=== PATIENT | female | born 1980 | race Caucasian/White ===

== ENCOUNTER 2018-08-03 10:45 | Observation (INO) ==
--- NOTE | 2018-08-03 11:23 | Emergency Department Note ---
ED Disposition Clinical Impression: Dehydration, Cirrhosis of liver, Acute and chronic cholecystitis Disposition: Admitted as Observation Condition on Discharge: Fair Instructions: DI for Diarrhea and Traveler's Diarrhea -- Adult, DI for Diarrhea and Traveler's Diarrhea -- Child, DI for Nausea -- Adult, DI for Nausea -- Child Referrals: Steve Marcus MD [Primary Care Provider] - Time of Disposition: 18:00 - Critical Care Critical Care Time: No Attestation: On 08/03/18, the high probability of a clinically significant, sudden or life threatening deterioration of the following system(s) required my full and direct attention, intervention and personal management. The time I documented below is in addition to time spent performing reported procedures but includes the following listed in this critical care notation. Medical Decision Making - Medical Records Medical records reviewed: Yes: I reviewed the patient's medical records. - Bubba Inquiry Pt receiving controlled substance: No Vital Signs: 08/03/18 11:01 08/03/18 13:00 08/03/18 15:23 Temperature 98.6 F Temperature Source Oral Pulse Rate [Right Brachial] 89 91 H 90 Respiratory Rate 17 Blood Pressure [Right Arm] 110/72 124/84 124/75 Blood Pressure Mean [Right Arm] 84 97 91 Blood Pressure Source [Right Arm] Automatic Cuff Automatic Cuff Automatic Cuff Blood Pressure Position [Right Arm] Sitting Sitting Sitting 02 Sat by Pulse Oximetry 98 99 99 Oxygen Delivery Method Room Air 08/03/18 17:22 Temperature Temperature Source Pulse Rate [Right Brachial] 79 Respiratory Rate Blood Pressure [Right Arm] 125/66 Blood Pressure Mean [Right Arm] 85 Blood Pressure Source [Right Arm] Automatic Cuff Blood Pressure Position [Right Arm] Sitting 02 Sat by Pulse Oximetry 94 L Oxygen Delivery Method - Lab Data Lab results reviewed: Yes: I reviewed the patient's lab results. Lab Results 08/03/18 11:25: WBC 8.0, RBC 4.24, Hgb 11.6 L, Hct 37.0, MCV 87.2, MCH 27.3, MCHC 31.3 L, RDW 17.4, Plt Count 471 H, MPV 7.8, Neut % (Auto) 56.5, Lymph % (Auto) 37.1, [place] % (Auto) 4.8, Eos % (Auto) 0.5, Baso % (Auto) 1.2, Neut # (Auto) 4.5, Lymph # (Auto) 3.0, [place] # (Auto) 0.4, Eos # (Auto) 0.0, Baso # (Auto) 0.1 08/03/18 11:25: Sodium 137, Potassium 3.4 L, Chloride 104, Carbon Dioxide 25, Anion Gap 11.4, BUN 6 L, Creatinine 0.72, Estimated Creat Clear 118, Estimated GFR 92, Est GFR ( Amer) 111, Glucose 118 H, Calcium 8.0 L, Total Bilirubin 6.5 H, Direct Bilirubin 6.0 H, Indirect Bilirubin 0.5, AST 120 H, ALT 625 H*, Alkaline Phosphatase 259 H, Total Protein 6.6, Albumin 2.1 L, Globulin 4.5 H, Albumin/Globulin Ratio 0.5 L, Amylase 85, Lipase 267 08/03/18 11:25: PT 12.2 H, INR 1.19 H, APTT 36.7 H 08/03/18 11:25: Serum HCG, Qual Negative 08/03/18 12:49: POC Glucose 94 08/03/18 12:55: Urine Color [place]uni, Urine Appearance Sl cloudy, Urine pH 6.5, Ur Specific [place] 1.015, Urine Protein Negative, Urine Glucose (UA) Negative, Urine Ketones Negative, Urine Blood Negative, Urine Nitrate Negative, Urine Bilirubin 3+ A, Urine Urobilinogen 0.2, Ur Leukocyte Esterase Negative, Urine RBC None, Urine WBC 3-5, Ur Squamous Epith Cells 10-20, Urine Bacteria 1+ Result diagrams: 08/03/18 11:25 08/03/18 11:25 Orders (Tests/Meds): ED MEDICATIONS Discontinued Medications Generic Name Dose Route Start Last Admin Trade Name Freq PRN Reason Stop Dose Admin Sodium Chloride 1,000 mls @ 999 mls/hr 08/03/18 11:30 08/03/18 12:10 Sod Chlor 0.9% 1000ml Bag IV 08/03/18 12:30 999 mls/hr .Q1H1M AGUEDA Administration Lactated Ringer's 1,000 mls @ 999 mls/hr 08/03/18 15:30 08/03/18 15:24 Lactated Ringer's 1000 Ml Bag IV 08/03/18 16:30 999 mls/hr .Q1H1M AGUEDA Administration Ondansetron HCl 4 mg 08/03/18 11:17 08/03/18 12:10 Zofran 4mg/2ml Vial IV 08/03/18 11:18 4 mg ONCE ONE Administration ORDERS Category Date Time Status Hepatitis Panel (4) Stat Lab 08/03/18 17:58 Ordered Urinalysis and Microscopic Stat Lab 08/03/18 12:55 Ordered - Reevaluation(s) Time: 15:05 Reevaluation #1: Patient improved CT recommends a follow-up ultrasound Medical Decision Narrative: Differential diagnosis sepsis, hepatitis C hepatitis, malignancy, renal colic, cholecystitis FINDINGS: There are mild atelectatic changes in the right lung base with trace right-sided effusion. The liver, spleen, adrenal glands, and pancreas have an unremarkable unenhanced appearance. No renal or ureteral calculi. No hydronephrosis. Fluid density occupies the gallbladder fossa with a focal area of rim-like density within the central aspect of the gallbladder fossa. This may represent a contracted gallbladder with a moderate amount of pericholecystic fluid versus severe gallbladder wall thickening. Suggest ultrasound for further evaluation. An unusual shaped stone within a distended gallbladder is also a consideration. There is moderate retained colonic feces. No evidence of appendicitis or diverticulitis. There is a moderate amount fluid in the pelvis. No intestinal obstruction or free air. Nondistended fluid-filled loops of small bowel are noted. No acute bony anomalies. Degenerative disc disease is present at L4-L5. IMPRESSION: 1. Fluid density within the gallbladder fossa with a oval area of ringlike density centrally. This may be due to a contracted gallbladder with a moderate amount of pericholecystic fluid versus severe gallbladder wall thickening versus a distended gallbladder with a stone centrally. Suggest ultrasound for more thorough evaluation. 2. Moderate amount of nonspecific fluid in the pelvis. 3. Constipation 4. Trace right effusion with right basilar atelectasis Dictated By: Royce Carranza MD Signed By: <Electronically signed by Royce Carranza MD in [place]> 08/03/18 1355 DD/ 1345 FINDINGS: PANCREAS: Unremarkable. No obvious mass or abnormal fluid collection. No ductal dilatation LIVER: No focal liver lesions demonstrated. Homogeneous echogenicity. No intrahepatic biliary ductal dilatation evident RIGHT KIDNEY: Unremarkable. Normal size and echogenicity. No hydronephrosis GALLBLADDER: There is marked thickening of the gallbladder wall. This accounts for the abnormality noted on the CT scan. Gallbladder wall measures up to 18 mm in thickness. The common hepatic duct is normal at 5 mm. No gallstones are apparent. The spleen is enlarged at 16 cm IMPRESSION: 1. Markedly thickened gallbladder wall. No obvious stones. Gallbladder wall thickening is nonspecific and can be seen with acute or chronic cholecystitis, cirrhosis, hepatitis, among other etiologies. 2. Splenomegaly Dictated By: Royce Carranza MD Signed By: <Electronically signed by Royce Carranza MD in [place]> 08/03/18 1651 DD/ 1625 General Adult HPI - General Chief complaint: Nausea/Vomiting/Diarrhea Stated complaint: jaundice Time Seen by Provider: 08/03/18 11:10 Mode of Arrival: Ambulatory Limitations: No Limitations Description of Symptoms (Recalled from ER Triage Doc. by RN): patient sent from 's office for a hepatitis a work up after having had n/v for last two weeks along with fever. she has already a dx of hep c and usually doesn't have trouble from it - History of Present Illness HPI narrative: 38-year-old female with hepatitis C since 2012 last used IV drugs 3 weeks ago history of multiple incarcerations has no PMD has not been treated for the hepatitis for last 2 weeks patient states she is progressively getting jaundiced and feeling weaker with nausea no vomiting some nonspecific denies abdominal pain. Radiation: back Severity: moderate Quality: aching - Related Data Previous Rx's Medication Instructions Recorded cephALEXin [Keflex 500mg Cap] 500 mg PO TID #30 cap 05/26/18 fluconazole 100 mg tablet 100 mg PO DAILY 2 Days #2 tab 07/28/18 levofloxacin 500 mg tablet 500 mg PO DAILY 10 Days #10 tab 07/28/18 Allergies Allergy/AdvReac Type Severity Reaction Status Date / Time No Known Allergies Allergy Verified 08/03/18 09:46 [facility] History - Hepatitis A Screen Drug use history?: No High risk sexual behaviors?: No History of sexually transmitted infection?: No Currently employed?: No Childcare worker?: No Do you have indoor plumbing?: Yes Do you have electricity?: Yes Attestation statement:: This patient has been screened for Hepatitis A risk factors. I have reviewed the patient's past medical history: Yes Medical History: Reports:: Anxiety, Asthma, Hepatitis, MRSA Denies:: Cancer, Diabetes Mellitus Type 1, Diabetes Mellitus Type 2 Comment: HEP C + Other Surgeries: Yes: No Previous Surgery, Other (leap surgery and reconstructive surgery on face) Amputation: No Fractures: No - Social History Smoking Status: Current every day smoker Tobacco Type: cigarettes Alcohol Intake: never Substance Use Type: IV drugs, methamphetamine, former substance user - Psychiatric History Pschychiatric History:: Reports:: Anxiety Family Hx:: Cancer, Hypertension, Heart Attack, Stroke ROS Obtained: Yes All systems reviewed & no additional complaints - Gastrointestinal Gastrointestingal: Reports: as per HPI, abdominal pain, vomiting Physical Exam Patient grossly jaundiced alert and oriented but moving slowly appears weak somewhat dehydrated - General General appearance: alert (Weak and jaundiced), in distress Comment: She is jaundiced - Head Head exam: atraumatic, normocephalic, normal inspection - Eye Eye exam: Present: normal appearance, PERRL, EOMI - ENT ENT exam: Present: normal exam, normal oropharynx, mucous membranes moist, TM's normal bilaterally, normal external ear exam - Neck Neck exam: Present: normal inspection, full ROM, trachea midline. Absent: meningismus, lymphadenopathy - Chest Chest inspection: Present: normal inspection, symmetric chest wall rise. Absent: tenderness - Respiratory Respiratory exam: Present: normal lung sounds bilaterally. Absent: respiratory distress - Cardiovascular Cardiovascular exam: Present: regular rate, normal rhythm. Absent: JVD - Abdominal Exam Abdominal exam: Present: soft, tenderness (Generalized soreness no guarding no rebound), normal bowel sounds. Absent: distention, guarding Abdominal tenderness: Present: diffuse - Extremities Exam Extremities exam: Present: normal inspection, full ROM, normal capillary refill. Absent: calf tenderness - Back Exam Back exam: Present: normal inspection. Absent: tenderness - Neurological Exam Neurological exam: Present: alert, oriented X3 - Psychiatric Psychiatric exam: Present: normal affect, normal mood - Skin Skin exam: Present: warm, dry, intact, normal color - Lymphatic Lymphatic Findings: no adenopathy
[2018-08-03 11:43] LABS: Basophils # 0.1 K/mm3 (0-0.2); Basophils % 1.2 % (0.1-2.0); Eosinophils % 0.5 % (0.1-12.0); Hemoglobin 11.6 g/dL (12.2-16.2); Lymphocytes % 37.1 % (10-50); Mean Corpuscular HGB Conc 31.3 g/dL (31.8-35.4); Mean Corpuscular Hemoglobin 27.3 pg (27.0-31.2); Mean Corpuscular Volume 87.2 fl (81-99); Mean Platelet Volume 7.8 fl (7.4-10.4); Monocytes # 0.4 K/mm3 (0.1-1.0); Monocytes % 4.8 % (1.7-9.3); Neutrophils # 4.5 K/mm3 (1.8-7.8); Neutrophils % 56.5 % (37.0-80.0); Platelet Count 471 K/mm3 (142-424); Red Blood Count 4.24 M/mm3 (4.20-5.40); Red Cell Distribution Width 17.4 % (11.5-17.5)
[2018-08-03 11:52] LABS: INR 1.19 (0.9-1.1); Prothrombin Time 12.2 seconds (9.4-11.8)
[2018-08-03 11:53] LABS: Albumin Level 2.1 gm/dL (3.4-5.0); Albumin/Globulin Ratio 0.5 (1.1-1.8); Anion Gap 11.4 mEq/L (5-15); Globulin 4.5 gm/dl (1.3-3.2); Potassium 3.4 mmoL/L (3.5-5.1); Total Protein,Serum 6.6 gm/dL (6.4-8.2)
[2018-08-03 11:55] LABS: Activated Partial Thrombo Time 36.7 seconds (23.6-34.0)
[2018-08-03 12:07] LABS: Bilirubin,Total 6.5 mg/dL (0.2-1.0)
[2018-08-03 12:19] LABS: Bilirubin,Indirect 0.5 mg/dL (0.0-0.9)
[2018-08-03 13:02] LABS: Microscopic, Urine URINE MICROSCOPIC (MICROSCOPIC)
[2018-08-03 13:24] LABS: Appearance,Urine SL CLOUDY (Clear); Blood, Urine Negative (Negative); Color,Urine AMBER (Yellow); Glucose,Urine (UA) Negative (Negative); Ketones,Urine Negative (Negative); Leukocyte Esterase,Urine Negative (Negative); PH,Urine 6.5 (5.0-8.5); Protein,Urine Negative (Negative); Specific Gravity, Urine 1.015 (1.005-1.030); Urobilinogen,Urine 0.2 EU/dl (0.2)
[2018-08-03 13:27] LABS: Bilirubin,Urine 3+ (Negative)
[2018-08-03 13:36] LABS: Bacteria,Urine 1+ /lpf
[2018-08-04 06:11] LABS: Basophils # 0.1 K/mm3 (0-0.2); Eosinophils # 0.1 K/mm3 (0.0-0.4); Monocytes # 0.3 K/mm3 (0.1-1.0); White Blood Count 5.9 K/mm3 (4.8-10.8)
[2018-08-04 06:21] LABS: Basophils % 1.1 % (0.1-2.0); Hematocrit 33.2 % (37.0-47.0); Lymphocytes # 2.4 K/mm3 (0.7-4.5); Lymphocytes % 40.8 % (10-50); Mean Corpuscular HGB Conc 31.5 g/dL (31.8-35.4); Mean Corpuscular Hemoglobin 27.6 pg (27.0-31.2); Mean Corpuscular Volume 87.7 fl (81-99); Mean Platelet Volume 7.5 fl (7.4-10.4); Monocytes % 4.8 % (1.7-9.3); Neutrophils # 3.1 K/mm3 (1.8-7.8); Neutrophils % 52.3 % (37.0-80.0); Platelet Count 429 K/mm3 (142-424); Red Blood Count 3.78 M/mm3 (4.20-5.40); Red Cell Distribution Width 17.8 % (11.5-17.5)
[2018-08-04 06:24] LABS: Anion Gap 10.9 mEq/L (5-15); Potassium 3.9 mmoL/L (3.5-5.1)
[2018-08-04 06:27] LABS: Hemoglobin 10.4 g/dL (12.2-16.2)
--- NOTE | 2018-08-04 06:39 | Consult Report ---
*Admission Date: 08/03/18 *Chief complaint: Nausea and jaundice *History of present illness: This is a 38-year-old female seen in consultation from Dr. Marcus after presenting with nausea and jaundice. Evaluation included radiographic evidence of gallbladder wall thickening consistent with either cholecystitis or hepatitis. She has a documented history of hepatitis C. Please see forwarded copy of HPI from emergency department evaluation below: 38-year-old female with hepatitis C since 2012 last used IV drugs 3 weeks ago history of multiple incarcerations has no PMD has not been treated for the hepat itis for last 2 weeks patient states she is progressively getting jaundiced and feeling weaker with nausea no vomiting some nonspecific denies abdominal pain. Review of Systems - Constitutional Denies fever(s) - Eyes Denies change in vision - ENT Denies change in voice - *Cardiovascular Denies chest pain - *Respiratory Denies cough - *Gastrointestinal Reports nausea - Hematologic/Lymphatic Denies easy bleeding [facility] History Medical History: Reports:: Anxiety, Asthma, Hepatitis, MRSA Denies:: Cancer, Diabetes Mellitus Type 1, Diabetes Mellitus Type 2 Other Surgeries: Yes: No Previous Surgery, Tubal LigationComment Only: Other (leap surgery and reconstructive surgery on face) Amputation: No Fractures: No - *Social History Educational Level: Attended College Smoking Status: Current every day smoker Tobacco Type: cigarettes # Packs/Day (cigarettes): 1 Alcohol Intake: never Substance Use Type: IV drugs, methamphetamine Last Used Substance: days (ago) Occupational Status: unemployed Housing: house Household Members: family - Psychiatric History Expresses thoughts of harming self/others: None Suicide Plan Description: No Plan Pschychiatric History:: Reports:: Anxiety *Family Hx:: Cancer, Hypertension, Heart Attack, Stroke Meds Home Medications Medication Instructions Recorded Confirmed Type cephALEXin [Keflex 500mg Cap] 500 mg PO TID #30 cap 05/26/18 08/03/18 Rx fluconazole 100 mg tablet 100 mg PO DAILY 2 Days #2 tab 07/28/18 08/03/18 Rx levofloxacin 500 mg tablet 500 mg PO DAILY 10 Days #10 tab 07/28/18 08/03/18 Rx Allergies Allergy/AdvReac Type Severity Reaction Status Date / Time No Known Allergies Allergy Verified 08/03/18 09:46 Exam Vital signs and Labs for Last 24 Hours: Temp Pulse Resp BP Pulse Ox 98.1 F 80 18 115/70 98 08/04/18 04:00 08/04/18 04:00 08/04/18 04:00 08/04/18 04:00 08/04/18 04:00 Laboratory Results - last 24 hr 08/03/18 11:25: WBC 8.0, RBC 4.24, Hgb 11.6 L, Hct 37.0, MCV 87.2, MCH 27.3, MCHC 31.3 L, RDW 17.4, Plt Count 471 H, MPV 7.8, Neut % (Auto) 56.5, Lymph % (Auto) 37.1, [place] % (Auto) 4.8, Eos % (Auto) 0.5, Baso % (Auto) 1.2, Neut # (Auto) 4.5, Lymph # (Auto) 3.0, [place] # (Auto) 0.4, Eos # (Auto) 0.0, Baso # (Auto) 0.1 08/03/18 11:25: Sodium 137, Potassium 3.4 L, Chloride 104, Carbon Dioxide 25, Anion Gap 11.4, BUN 6 L, Creatinine 0.72, Estimated Creat Clear 118, Estimated GFR 92, Est GFR ( Amer) 111, Glucose 118 H, Calcium 8.0 L, Total Bilirubin 6.5 H, Direct Bilirubin 6.0 H, Indirect Bilirubin 0.5, AST 120 H, ALT 625 H*, Alkaline Phosphatase 259 H, Total Protein 6.6, Albumin 2.1 L, Globulin 4.5 H, Albumin/Globulin Ratio 0.5 L, Amylase 85, Lipase 267 08/03/18 11:25: PT 12.2 H, INR 1.19 H, APTT 36.7 H 08/03/18 11:25: Serum HCG, Qual Negative 08/03/18 12:49: POC Glucose 94 08/03/18 12:55: Urine Color [place], Urine Appearance Sl cloudy, Urine pH 6.5, Ur Specific [place] 1.015, Urine Protein Negative, Urine Glucose (UA) Negative, Urine Ketones Negative, Urine Blood Negative, Urine Nitrate Negative, Urine Bilirubin 3+ A, Urine Urobilinogen 0.2, Ur Leukocyte Esterase Negative, Urine RBC None, Urine WBC 3-5, Ur Squamous Epith Cells 10-20, Urine Bacteria 1+ 08/04/18 05:46: WBC 5.9 D, RBC 3.78 L, Hgb 10.4 L D, Hct 33.2 L, MCV 87.7, MCH 27.6, MCHC 31.5 L, RDW 17.8 H, Plt Count 429 H, MPV 7.5, Neut % (Auto) 52.3, Lymph % (Auto) 40.8, [place] % (Auto) 4.8, Eos % (Auto) 1.0, Baso % (Auto) 1.1, Neut # (Auto) 3.1, Lymph # (Auto) 2.4, [place] # (Auto) 0.3, Eos # (Auto) 0.1, Baso # (Auto) 0.1 08/04/18 05:46: Sodium 136, Potassium 3.9, Chloride 106, Carbon Dioxide 23, Anion Gap 10.9, BUN 5 L, Creatinine 0.74, Estimated Creat Clear 113, Estimated GFR 89, Est GFR ( Amer) 107, Magnesium 1.6 I & O for Last 24 hours: Intake & Output 08/01/18 08/02/18 08/03/18 08/04/18 11:59 11:59 11:59 11:59 Intake Total 1310 / 1310 Balance 1310 / 1310 Weight 152 lb 150 lb 7 oz - Constitutional no acute distress - *Routine Respiratory Exam Absent: respiratory distress - *Routine Cardiovascular Exam Present: RRR - *Routine Abdominal Exam Present: soft, tenderness. Absent: rebound, guarding Comments: mostly epigastric and RUQ Results - Labs 08/04/18 05:46 08/04/18 05:46 Laboratory Results - last 24 hr 08/03/18 11:25: WBC 8.0, RBC 4.24, Hgb 11.6 L, Hct 37.0, MCV 87.2, MCH 27.3, MCHC 31.3 L, RDW 17.4, Plt Count 471 H, MPV 7.8, Neut % (Auto) 56.5, Lymph % (Auto) 37.1, [place] % (Auto) 4.8, Eos % (Auto) 0.5, Baso % (Auto) 1.2, Neut # (Auto) 4.5, Lymph # (Auto) 3.0, [place] # (Auto) 0.4, Eos # (Auto) 0.0, Baso # (Auto) 0.1 08/03/18 11:25: Sodium 137, Potassium 3.4 L, Chloride 104, Carbon Dioxide 25, Anion Gap 11.4, BUN 6 L, Creatinine 0.72, Estimated Creat Clear 118, Estimated GFR 92, Est GFR ( Amer) 111, Glucose 118 H, Calcium 8.0 L, Total Bilirubin 6.5 H, Direct Bilirubin 6.0 H, Indirect Bilirubin 0.5, AST 120 H, ALT 625 H*, Alkaline Phosphatase 259 H, Total Protein 6.6, Albumin 2.1 L, Globulin 4.5 H, Albumin/Globulin Ratio 0.5 L, Amylase 85, Lipase 267 08/03/18 11:25: PT 12.2 H, INR 1.19 H, APTT 36.7 H 08/03/18 11:25: Serum HCG, Qual Negative 08/03/18 12:49: POC Glucose 94 08/03/18 12:55: Urine Color [place], Urine Appearance Sl cloudy, Urine pH 6.5, Ur Specific [place] 1.015, Urine Protein Negative, Urine Glucose (UA) Negative, Urine Ketones Negative, Urine Blood Negative, Urine Nitrate Negative, Urine Bilirubin 3+ A, Urine Urobilinogen 0.2, Ur Leukocyte Esterase Negative, Urine RBC None, Urine WBC 3-5, Ur Squamous Epith Cells 10-20, Urine Bacteria 1+ 08/04/18 05:46: WBC 5.9 D, RBC 3.78 L, Hgb 10.4 L D, Hct 33.2 L, MCV 87.7, MCH 27.6, MCHC 31.5 L, RDW 17.8 H, Plt Count 429 H, MPV 7.5, Neut % (Auto) 52.3, Lymph % (Auto) 40.8, [place] % (Auto) 4.8, Eos % (Auto) 1.0, Baso % (Auto) 1.1, Neut # (Auto) 3.1, Lymph # (Auto) 2.4, [place] # (Auto) 0.3, Eos # (Auto) 0.1, Baso # (Auto) 0.1 08/04/18 05:46: Sodium 136, Potassium 3.9, Chloride 106, Carbon Dioxide 23, Anion Gap 10.9, BUN 5 L, Creatinine 0.74, Estimated Creat Clear 113, Estimated GFR 89, Est GFR ( Amer) 107, Magnesium 1.6 Assessment and Plan (1) Hepatitis Current visit: Yes Status: Acute Category: Medical Code(s): K75.9 - Inflammatory liver disease, unspecified Although the possibility of cholecystitis exists, the radiographic changes of the patient's gallbladder are more likely secondary to hepatitis. She does not have an elevated white blood cell count and shows no sign of active infection. There is no definitive evidence of gallstones or secondary evidence of biliary duct obstruction. Serial abdominal exams Medical treatment of hepatitis Consideration of gastroenterology evaluation if concerns for obstruction increase (2) Jaundice Current visit: Yes Status: Acute Category: Medical Code(s): R17 - Unspecified jaundice Hyperbilirubinemia most likely secondary to hepatitis and less likely due to ductal obstruction.
[2018-08-04 06:53] LABS: Calcium 8.1 mg/dL (8.5-10.1)
--- NOTE | 2018-08-04 07:31 | Pharmacy Consult Notes ---
[facility] Pharmacy VTE Monitoring - Patient Demographics Admission date: 08/03/18 Report Date: 08/04/18 Time: 07:30 Allergies/Adverse Reactions: Patient Allergies No Known Allergies Allergy (Verified 08/03/18 09:46) Height: 1.68 m Weight: 68.237 kg Patient Problems: Current Active Problems Dehydration (Acute) Cirrhosis of liver (Acute) Acute and chronic cholecystitis (Acute) Hepatitis (Acute) Jaundice (Acute) - VTE Risk Labs: VTE Related Lab Results Hgb 10.4 g/dL (12.2-16.2) L D 08/04/18 05:46 Hct 33.2 % (37.0-47.0) L 08/04/18 05:46 Plt Count 429 K/mm3 (142-424) H 08/04/18 05:46 PT 12.2 seconds (9.4-11.8) H 08/03/18 11:25 INR 1.19 (0.9-1.1) H 08/03/18 11:25 APTT 36.7 seconds (23.6-34.0) H 08/03/18 11:25 BUN 5 mg/dL (7-18) L 08/04/18 05:46 Creatinine 0.74 mg/dL (0.55-1.02) 08/04/18 05:46 Estimated Creat Clear 113 mL/min (50-200) 08/04/18 05:46 Was VTE Risk Assessment Performed: Yes VTE Score: 0 VTE Risk Level: Very Low Risk - Prophylaxis VTE Prophylaxis Ordered?: Yes Types of VTE Prophylaxis: TEDS Knee High Location of Applied Device: Bilateral Lower Extremeties - VTE Diagnosis Confirmed Treatment or plan recommended: Continue Current Treatment
[2018-08-04 09:31] LABS: INR 1.17 (0.9-1.1)
[2018-08-04 09:34] LABS: Albumin Level 1.8 gm/dL (3.4-5.0); C-Reactive Protein 3.3 mg/L (0.0-0.9); Total Protein,Serum 5.9 gm/dL (6.4-8.2)
[2018-08-04 09:51] LABS: Bilirubin,Direct 2.8 mg/dL (0.0-0.2); Bilirubin,Indirect 0.4 mg/dL (0.0-0.9); Bilirubin,Total 3.2 mg/dL (0.2-1.0)
--- NOTE | 2018-08-04 13:52 | H&P/Discharge Summary ---
General - General Admission date:: 08/03/18 Discharge date: 08/04/18 *Admission Date: 08/03/18 *Chief complaint: jandiedwin *History of present illness: 38-year-old female seen in office yesterday with c/o of nausea and jaundice x 1 week. Evaluation included radiographic evidence of gallbladder wall thickening consistent with either cholecystitis or hepatitis. She has a documented history of hepatitis C sice 2012, last used IV drugs 3 weeks ago history of multiple incarcerations has no PMD has not been treated for the hepatitis. Was seen in in 2012 for hepatitis. Pt states for last 2 weeks patient states she is progressively getting jaundiced and feeling weaker with nausea no vomiting some nonspecific denies abdominal pain. [facility] History I have reviewed the patient's past medical history: Yes Medical History: Reports:: Anxiety, Asthma, Hepatitis, MRSA Denies:: Cancer, Diabetes Mellitus Type 1, Diabetes Mellitus Type 2 Other Surgeries: Yes: No Previous Surgery, Tubal LigationComment Only: Other (leap surgery and reconstructive surgery on face) Amputation: No Fractures: No - *Social History Educational Level: Attended College Smoking Status: Current every day smoker Tobacco Type: cigarettes # Packs/Day (cigarettes): 1 Alcohol Intake: never Substance Use Type: IV drugs, methamphetamine Last Used Substance: days (ago) Occupational Status: unemployed Housing: house Household Members: family - Psychiatric History Expresses thoughts of harming self/others: None Suicide Plan Description: No Plan Pschychiatric History:: Reports:: Anxiety *Family Hx:: Cancer, Hypertension, Heart Attack, Stroke Review of Systems - Review of Systems Review of systems:: pertinent systems reviewed and negative unless documented below - Constitutional Denies chills - Eyes Denies change in vision - ENT Denies change in voice - *Cardiovascular Denies rapid, pounding, or irregular heartbeat - *Respiratory Denies shortness of breath with activity - *Gastrointestinal Reports bloating, Reports nausea, Reports vomiting, Denies feeling full early - *Genitourinary Denies abnormal periods - *Musculoskeletal Denies decreased muscle mass - Integumentary/Breasts Denies rash - *Neurologic Denies restless legs - Psychiatric Denies anxiety - Endocrine Denies heat intolerance - Hematologic/Lymphatic Denies enlarged lymph nodes - Allergic/Immunologic Denies lip swelling Exam Vital signs and Labs for Last 24 Hours: Temp Pulse Resp BP Pulse Ox 99.7 F H 72 16 116/68 95 08/04/18 08:00 08/04/18 08:00 08/04/18 08:00 08/04/18 08:00 08/04/18 08:00 Laboratory Results - last 24 hr 08/04/18 05:46: WBC 5.9 D, RBC 3.78 L, Hgb 10.4 L D, Hct 33.2 L, MCV 87.7, MCH 27.6, MCHC 31.5 L, RDW 17.8 H, Plt Count 429 H, MPV 7.5, Neut % (Auto) 52.3, Lymph % (Auto) 40.8, [place] % (Auto) 4.8, Eos % (Auto) 1.0, Baso % (Auto) 1.1, Neut # (Auto) 3.1, Lymph # (Auto) 2.4, [place] # (Auto) 0.3, Eos # (Auto) 0.1, Baso # (Auto) 0.1 08/04/18 05:46: Sodium 136, Potassium 3.9, Chloride 106, Carbon Dioxide 23, Anion Gap 10.9, BUN 5 L, Creatinine 0.74, Estimated Creat Clear 113, Estimated GFR 89, Est GFR ( Amer) 107, Glucose 87 D, Calcium 8.1 L, Magnesium 1.6 08/04/18 05:46: ESR 73 H 08/04/18 09:14: PT 12.0 H, INR 1.17 H 08/04/18 09:14: Total Bilirubin 3.2 H, Direct Bilirubin 2.8 H, Indirect Bilirubin 0.4, AST 93 H, ALT 438 H*, Alkaline Phosphatase 247 H, C-Reactive Protein 3.3 H, Total Protein 5.9 L, Albumin 1.8 L D I & O for Last 24 hours: Intake & Output 08/02/18 08/03/18 08/04/18 08/05/18 11:59 11:59 11:59 11:59 Intake Total 1909 Balance 1909 Weight 152 lb 150 lb 7 oz - Constitutional no acute distress, chronically ill appearing - *Routine HEENT Exam Head: Present: normocephalic Eye: Present: PERRL ENT: Present: mucous membranes moist - *Routine Neck Exam Present: supple. Absent: lymphadenopathy - *Routine Respiratory Exam Present: CTA bilaterally - *Routine Cardiovascular Exam Present: RRR, murmur - *Routine Abdominal Exam Present: soft, normoactive bowel sounds, tenderness - *Routine Extremities Exam Present: full ROM. Absent: cyanosis, clubbing, edema - *Routine Skin Exam Present: warm, jaundice. Absent: rash - *Routine Neurological Exam Present: alert, oriented X3 - Routine Psychiatric Exam Present: normal affect Hospital Course Hospital Course: gallbladder:IMPRESSION: 1. Markedly thickened gallbladder wall. No obvious stones. Gallbladder wall thickening is nonspecific and can be seen with acute or chronic cholecystitis, cirrhosis, hepatitis, among other etiologies. 2. Splenomegaly ct IMPRESSION: 1. Fluid density within the gallbladder fossa with a oval area of ringlike density centrally. This may be due to a contracted gallbladder with a moderate amount of pericholecystic fluid versus severe gallbladder wall thickening versus a distended gallbladder with a stone centrally. Suggest ultrasound for more thorough evaluation. 2. Moderate amount of nonspecific fluid in the pelvis. 3. Constipation 4. Trace right effusion with right basilar atelectasis chest x ray:IMPRESSION: Trace right effusion with mild right basilar atelectasis or infiltrate echo- result pending pt states she is feeling bettter and eating and drinking well. Results Labs on day of discharge: Labs from last 24 hours 08/04/18 08/04/18 08/04/18 09:14 09:14 05:46 WBC RBC Hgb Hct MCV MCH MCHC RDW Plt Count MPV Neut % (Auto) Lymph % (Auto) [place] % (Auto) Eos % (Auto) Baso % (Auto) Neut # (Auto) Lymph # (Auto) [place] # (Auto) Eos # (Auto) Baso # (Auto) ESR 73 H PT 12.0 H INR 1.17 H Sodium Potassium Chloride Carbon Dioxide Anion Gap BUN Creatinine Estimated Creat Clear Estimated GFR Est GFR ( Amer) Glucose Calcium Magnesium Total Bilirubin 3.2 H Direct Bilirubin 2.8 H Indirect Bilirubin 0.4 AST 93 H ALT 438 H* Alkaline Phosphatase 247 H C-Reactive Protein 3.3 H Total Protein 5.9 L Albumin 1.8 L D 08/04/18 08/04/18 05:46 05:46 WBC 5.9 D RBC 3.78 L Hgb 10.4 L D Hct 33.2 L MCV 87.7 MCH 27.6 MCHC 31.5 L RDW 17.8 H Plt Count 429 H MPV 7.5 Neut % (Auto) 52.3 Lymph % (Auto) 40.8 [place] % (Auto) 4.8 Eos % (Auto) 1.0 Baso % (Auto) 1.1 Neut # (Auto) 3.1 Lymph # (Auto) 2.4 [place] # (Auto) 0.3 Eos # (Auto) 0.1 Baso # (Auto) 0.1 ESR PT INR Sodium 136 Potassium 3.9 Chloride 106 Carbon Dioxide 23 Anion Gap 10.9 BUN 5 L Creatinine 0.74 Estimated Creat Clear 113 Estimated GFR 89 Est GFR ( Amer) 107 Glucose 87 D Calcium 8.1 L Magnesium 1.6 Total Bilirubin Direct Bilirubin Indirect Bilirubin AST ALT Alkaline Phosphatase C-Reactive Protein Total Protein Albumin - Additional Comments Rounded with Dr. Marcus all orders per Angeline DS: Diagnosis - Discharge Diagnosis (1) Hepatitis Status: Acute (2) Jaundice Status: Acute Discharge Medications - Medications for Discharge Home Medication List at Discharge: No Action levofloxacin 500 mg tablet 500 mg PO DAILY 10 Days #10 tab Disposition Disposition: Home, Self-Care
[2018-08-05 07:13] LABS: Hepatitis B Core Antibody IgM Negative (Negative); Hepatitis B Surface Antigen Negative (Negative)
[2018-08-05 14:02] LABS: Hepatitis C Antibody >11.0 s/co ratio (0.0-0.9)
== END 2018-08-04 14:15 | disposition home or self-care (01) ==
LOC: ER 10:45 → 2ND 10:45
PROVIDERS: ADMIT Emergency Medicine; ATTEND Emergency Medicine

== ENCOUNTER → 2018-09-25 08:03 | Outpatient (CLI) | payer MEDICAID, SELFPAY ==
--- NOTE | 2018-09-25 | AS_ITS ---
Renal Arterial Duplex Indications: Abdominal bruit, Hep C IMPRESSIONS Normal bilateral renal artery evaluation. Complete renal arterial duplex. Duplex scan and Doppler flow study including spectral analysis, color and lerma scale imaging. Location: Vascular laboratory. Patient status: Outpatient. Tables: Arterial flow: + +--------+--------+---------+ Location V sys V ed Resistive + +--------+--------+---------+ Right renal - proximal 141cm/s 54.7cm/s --------- + +--------+--------+---------+ Right renal - mid 112cm/s 44.7cm/s --------- + +--------+--------+---------+ Right renal - distal 96.1cm/s 43.7cm/s --------- + +--------+--------+---------+ Left renal - proximal 103cm/s 36.2cm/s --------- + +--------+--------+---------+ Left renal - mid 166cm/s 67.8cm/s --------- + +--------+--------+---------+ Left renal - distal 152cm/s 57.7cm/s --------- + +--------+--------+---------+ Right renal-origin 138cm/s 48.1cm/s 0.65 + +--------+--------+---------+ Left renal-origin 95.7cm/s 30.9cm/s 0.68 + +--------+--------+---------+ Renal anatomy: + +------+------+ Left Right + +------+------+ Long axis 12.7cm 12.3cm + +------+------+ Short axis 6.2cm 6.1cm + +------+------+ Cortical thickness 1.5cm 1.6cm + +------+------+ Velocity ratios: + +-----+ V sys + +-----+ Right renal/aortic 1.3 + +-----+ Left renal/aortic 1.5 + +-----+ (Report amended ) Electronically signed by: Royce Carranza [id number]
--- NOTE | 2018-09-25 08:17 | US_ITS ---
US abdomen complete HISTORY: 8 ITS.REASON: POSITIVE HEPATITIS C,ABD BRUIT ORDERING PHYSICIAN: Conchita Herrmann PATIENT AGE: 38 years COMPARISON: None FINDINGS: PANCREAS:Unremarkable. No obvious mass or abnormal fluid collection. No ductal dilatation LIVER:No focal liver lesions demonstrated. Homogeneous echogenicity. No intrahepatic biliary ductal dilatation evident. There is appropriate direction of blood flow within the portal vein which is not enlarged RIGHT KIDNEY:Unremarkable. Normal size and echogenicity. No hydronephrosis LEFT KIDNEY:Unremarkable. No hydronephrosis. Normal size and echogenicity. GALLBLADDER:No gallstones, gallbladder wall thickening, pericholecystic fluid, or biliary dilatation. There is a small amount sludge in the gallbladder. There may be a small polyp anteriorly. No shadowing stones AORTA:No evidence of aneurysmal dilatation. SPLEEN:Unremarkable. Normal size and echogenicity. The spleen is upper normal in size at 13 cm ASCITES:None demonstrated. IMPRESSION: Minimal amount sludge in the gallbladder with possible wall polyp otherwise negative abdominal ultrasound
== END ==
PROVIDERS: PCP Emergency Medicine; Visit Provider Nurse Practitioner
DX: R76.8 Other specified abnormal immunological findings in serum (principal)
CPT/HCPCS: 76700; 93976

== ENCOUNTER 2020-02-12 19:55 | Emergency (ER) | payer MEDICAID, SELFPAY ==
[2020-02-12 19:56] VITALS: BP 152/72; PULSE 127; RESP 16; TEMP 37.2; O2SAT 100; BMI 24.2
[2020-02-12 20:14] VITALS: BP 94/66; PULSE 121; RESP 18; O2SAT 98
--- NOTE | 2020-02-12 20:15 | PC.NURSE ---
pt to restroom via wheelchair for urine sample
[2020-02-12 20:18] LABS: Microscopic, Urine URINE MICROSCOPIC (MICROSCOPIC)
[2020-02-12 20:21] LABS: Bilirubin,Urine Negative (Negative); Blood, Urine Negative (Negative); Color,Urine YELLOW (Yellow); Glucose,Urine (UA) Negative (Negative); Ketones,Urine Negative (Negative); Leukocyte Esterase,Urine 2+ (Negative); Nitrate,Urine POSITIVE (Negative); Protein,Urine Negative (Negative)
[2020-02-12 20:30] LABS: Appearance,Urine Slightly Cloudy (Clear)
--- NOTE | 2020-02-12 20:30 | XR_ITS ---
PROCEDURE: XR FOOT LT MIN 3V CLINICAL INDICATION: abcess on top of LT foot Pain redness and swelling COMPARISON: No exams were available for comparison FINDINGS: No fracture or dislocation. No lytic or blastic change. There is normal mineralization. The joint spaces are well-preserved. No significant degenerative/arthritic changes. No erosive changes evident. Other findings:Soft tissue swelling is present along the dorsal aspect of the foot at the metatarsal region and also at the dorsal aspect of the proximal foot. No radiopaque foreign body or soft tissue gas. IMPRESSION: Soft tissue swelling otherwise negative Dictated by: Royce Carranza MD 02/13/2020 07:56 Electronically signed by Royce Carranza MD in [place] 02/13/2020 07:56
[2020-02-12 20:34] LABS: Amphetamine/Metha Screen,Urine Positive ng/ml (<1000); Benzodiazepines Screen,Urine Negative ng/ml (<200)
[2020-02-12 20:35] LABS: Barbiturates Screen,Urine Negative ng/ml (<200); Cannabinoid Screen,Urine Negative ng/ml (<50)
[2020-02-12 20:36] LABS: Cocaine Screen,Urine Negative ng/ml (<300)
[2020-02-12 20:37] LABS: Methadone Screen,Urine Negative ng/ml (<300); Opiate Screen,Urine Negative ng/ml (<300)
[2020-02-12 20:38] LABS: Phencyclidine Screen,Urine Negative ng/ml (<25)
--- NOTE | 2020-02-12 20:39 | HMH.EDSKAF ---
ED Disposition Clinical Impression: SIRS (systemic inflammatory response syndrome), Elevated erythrocyte sedimentation rate, Elevated C-reactive protein, Amphetamine user, COVID-19 virus IgG antibody detected Cellulitis Qualifiers: Site of cellulitis: extremity Site of cellulitis of extremity: lower extremity Laterality: left Qualified Code(s): L03.116 - Cellulitis of left lower limb Disposition: Home, Self-Care Condition on Discharge: Fair Instructions: DI for Skin Abscess Additional Instructions: see dr flowers at 0800 Referrals: Provider,Referral, [Primary Care Provider] - - Critical Care Critical Care Time: No Attestation: On 02/12/20, the high probability of a clinically significant, sudden or life threatening deterioration of the following system(s) required my full and direct attention, intervention and personal management. The time I documented below is in addition to time spent performing reported procedures but includes the following listed in this critical care notation. Medical Decision Making - Medical Records Medical records reviewed: Yes: I reviewed the patient's medical records. - Bubba Inquiry Pt receiving controlled substance: No Vital Signs: 02/12/20 19:56 02/12/20 20:14 02/12/20 21:50 Temperature 99.0 F Temperature Source Oral Pulse Rate [Left Radial] 127 H 121 H 100 H Respiratory Rate 16 18 18 Blood Pressure [Right Arm] 152/72 H 94/66 L 120/80 Blood Pressure Mean [Right Arm] 98 75 93 Blood Pressure Source [Right Arm] Automatic Cuff Blood Pressure Position [Right Arm] Sitting 02 Sat by Pulse Oximetry 100 98 100 Oxygen Delivery Method Room Air Room Air Room Air 02/12/20 22:37 Temperature Temperature Source Pulse Rate [Left Radial] 112 H Respiratory Rate 18 Blood Pressure [Right Arm] 127/78 Blood Pressure Mean [Right Arm] 94 Blood Pressure Source [Right Arm] Blood Pressure Position [Right Arm] 02 Sat by Pulse Oximetry 100 Oxygen Delivery Method Room Air - Lab Data Lab results reviewed: Yes: I reviewed the patient's lab results. Lab Results 02/12/20 20:13: Urine Color Yellow, Urine Appearance Slightly cloudy, Urine pH 7.0, Ur Specific [place] 1.010, Urine Protein Negative, Urine Glucose (UA) Negative, Urine Ketones Negative, Urine Blood Negative, Urine Nitrate Positive, Urine Bilirubin Negative, Urine Urobilinogen 1.0, Ur Leukocyte Esterase 2+ A, Urine WBC 3-5, Ur Squamous Epith Cells Occasional, Urine Bacteria 2+ 02/12/20 20:13: Urine HCG, Qual Negative 02/12/20 20:13: Urine Opiates Screen Negative, Urine Methadone Screen Negative, Ur Barbituates Screen Negative, Ur Phencyclidine Scrn Negative, Ur Amphetamines Screen Positive H, U Benzodiazepines Scrn Negative, Urine Cocaine Screen Negative, U Marijuana (THC) Screen Negative 02/12/20 21:41: ESR 79 H 02/12/20 21:41: WBC 15.7 H, RBC 4.18 L, Hgb 12.5, Hct 35.6 L, MCV 85.1, MCH 30.0, MCHC 35.2, RDW 13.5, Plt Count 324, MPV 7.2 L, Neut % (Auto) 77.0, Lymph % (Auto) 17.7, [place] % (Auto) 4.6, Eos % (Auto) 0.4, Baso % (Auto) 0.2, Neut # (Auto) 12.1 H, Lymph # (Auto) 2.8, [place] # (Auto) 0.7, Eos # (Auto) 0.1, Baso # (Auto) 0.0 02/12/20 21:41: Sodium 132 L, Potassium 3.9, Chloride 102, Carbon Dioxide 24, Anion Gap 9.9, BUN 7, Creatinine 0.60, Estimated Creat Clear 138, Estimated GFR 112, Est GFR ( Amer) 136, Glucose 111 H, Calcium 9.1, Total Bilirubin 1.0, AST 62 H, ALT 63, Alkaline Phosphatase 92, C-Reactive Protein 104.1 H, Total Protein 7.9, Albumin 3.8, Globulin 4.1 H, Albumin/Globulin Ratio 0.9 L 02/12/20 21:41: SARS-CoV-2 IgG Ab (Rapid) Positive A, SARS-CoV-2 IgM Ab (Rapid) Negative Result diagrams: 02/12/20 21:41 02/12/20 21:41 Orders (Tests/Meds): ED MEDICATIONS Discontinued Medications Generic Name Dose Route Start Last Admin Trade Name Freq PRN Reason Stop Dose Admin Acetaminophen/Codeine Phosphate 1 rodrick 02/12/20 22:42 02/12/20 22:43 Acetaminophen W/Codeine #3 Take Home Pack (6) PO 02/12/20
[2020-02-12 20:44] LABS: Urine Pregnancy, HCG Qual. Negative (Negative)
--- NOTE | 2020-02-12 20:45 | PC.NURSE ---
at bedside. Femoral stick performed by . site prepped with chlor. prep pressure held by MD for 5 minutes. pt tolerated well
--- NOTE | 2020-02-12 20:50 | PC.NURSE ---
Paulette RN speaking to royce in pharmacy for vanc dosing
--- NOTE | 2020-02-12 20:50 | PC.NURSE ---
this nurse attempted IV access with no success due to Scar tissue from IV drug use reported by pt. Santos at bedside attempting now
--- NOTE | 2020-02-12 21:18 | PC.NURSE ---
multiple IV attempts per ed staff. supervisor vat house contacted to attempt IV stick
--- NOTE | 2020-02-12 21:18 | PC.NURSE ---
talking to dr flowers (podiatry)
[2020-02-12 21:31] LABS: Bacteria,Urine 2+ /lpf; Squamous Epithelial Cell,Urine Occasional #/hpf (0-5)
--- NOTE | 2020-02-12 21:42 | PC.NURSE ---
Tom unable to get IV access. spoke with Dr. Bartlett who will see pt in the morning at 8am.
--- NOTE | 2020-02-12 21:43 | PC.NURSE ---
at bedside for Femoral stick to retrieve blood.
--- NOTE | 2020-02-12 21:43 | PC.NURSE ---
pt refuses admission and stated she will follow up with Dr. Bartlett in the morning
[2020-02-12 21:50] VITALS: BP 120/80; PULSE 100; RESP 18; O2SAT 100
[2020-02-12 21:51] LABS: Basophils % 0.2 % (0.1-2.0); Eosinophils # 0.1 K/mm3 (0.0-0.4); Eosinophils % 0.4 % (0.1-12.0); Hematocrit 35.6 % (37.0-47.0); Hemoglobin 12.5 g/dL (12.2-16.2); Lymphocytes # 2.8 K/mm3 (0.7-4.5); Lymphocytes % 17.7 % (10-50); Mean Corpuscular HGB Conc 35.2 g/dL (31.8-35.4); Mean Corpuscular Volume 85.1 fl (81-99); Mean Platelet Volume 7.2 fl (7.4-10.4); Monocytes # 0.7 K/mm3 (0.1-1.0); Monocytes % 4.6 % (1.7-9.3); Neutrophils # 12.1 K/mm3 (1.8-7.8); Platelet Count 324 K/mm3 (142-424); Red Blood Count 4.18 M/mm3 (4.20-5.40); Red Cell Distribution Width 13.5 % (11.5-17.5); White Blood Count 15.7 K/mm3 (4.8-10.8)
[2020-02-12 21:55] LABS: Chloride 102 mmol/L (98-107); Potassium 3.9 mmoL/L (3.5-5.1); Sodium 132 mmol/L (136-145)
[2020-02-12 21:58] LABS: Alanine Aminotransferase 63 U/L (12-78); Albumin Level 3.8 g/dl (3.5-5.0); Albumin/Globulin Ratio 0.9 (1.1-1.8); Alkaline Phosphatase 92 U/L (38-126); Anion Gap 9.9 mEq/L (5-15); Aspartate Amino Transferase 62 U/L (14-36); Blood Urea Nitrogen 7 mg/dl (7-17); Calcium 9.1 mg/dl (8.4-10.2); Carbon Dioxide 24 mmol/L (22.0-30.0); Creatinine Clearance Estimated 138 mL/min (50-200); Estimated Glomerular Filt Rate 112 ml/min (>60); GFR (African American) 136 ML/MIN (>60); Globulin 4.1 g/dL (1.3-3.2); Glucose 111 mg/dl (74-100); Total Protein,Serum 7.9 g/dl (6.3-8.2)
[2020-02-12 22:00] LABS: MANUAL DIFFERENTIAL MANUAL DIFFERENTIAL (MANUAL DIFF)
[2020-02-12 22:03] LABS: C-Reactive Protein 104.1 mg/L (0-4)
[2020-02-12 22:17] LABS: Coronavirus 19 IgG Antibody Positive (Negative); Coronavirus 19 IgM Antibody Negative (Negative)
--- NOTE | 2020-02-12 22:18 | PC.NURSE ---
notified of positive covid IgG
[2020-02-12 22:30] LABS: Erythrocyte Sedimentation Rate 79 mm/hr (0-20)
[2020-02-12 22:37] VITALS: BP 127/78; PULSE 112; RESP 18; O2SAT 100
--- NOTE | 2020-02-12 22:50 | PC.NURSE ---
pt refused to be admitted. pt educated on the importance of showing up to her appointment with Dr. Bartlett at 8am tomorrow morning. pt educated on infection/sepsis and the dangers of not getting treatment
[2020-02-12 22:59] LABS: Lymphocytes % 21 % (10-50); Monocytes % 4 % (2-9); Neutrophils % 75 % (42-76); Platelet Estimate Normal; RBC Morphology Normal; Total Cells Counted 100
[2020-02-12 23:00] VITALS: BP 122/72; PULSE 110; RESP 16; TEMP 37.2; O2SAT 98
== END 2020-02-12 23:04 | disposition home or self-care (01) ==
PROVIDERS: Emergency Provider Emergency Medicine
DX: L03.116 Cellulitis of left lower limb (principal); R65.10 Systemic inflammatory response syndrome (SIRS) of non-infectious origin without acute organ dysfunction; R70.0 Elevated erythrocyte sedimentation rate; F15.10 Other stimulant abuse, uncomplicated; Z01.84 Encounter for antibody response examination; F41.9 Anxiety disorder, unspecified; F17.210 Nicotine dependence, cigarettes, uncomplicated; J45.909 Unspecified asthma, uncomplicated
CPT/HCPCS: 73630; 80053; 80305; 81001; 81025; 85007; 85025; 85651; 86140; 86328; 87040; 87070; 87077; 87086; 87088; 87186; 87205; 96372; 99283; 99284

== ENCOUNTER 2020-09-02 03:12 | Emergency (ER) | payer MEDICAID, SELFPAY ==
[2020-09-02 03:13] VITALS: BP 150/91; PULSE 103; RESP 16; TEMP 36.4; O2SAT 100; BMI 22.6
--- NOTE | 2020-09-02 03:54 | PC.NURSE ---
Unable to gain IV access after multiple attempts by staff.
--- NOTE | 2020-09-02 04:02 | HMH.EDSKAF ---
ED Disposition Clinical Impression: Cellulitis of axilla, right Disposition: Home, Self-Care Condition on Discharge: Fair Instructions: DI for Skin Abscess Additional Instructions: warm compresses and use meds and see pcp for follow up or surg Prescriptions: Sulfamethoxazole/Trimethoprim [Bactrim DS tablet] 1 each PO BID #14 tab Transmission Status: P[facility] to [id number] Mupirocin [Bactroban 2% Ointment 22gm tube] 1 applicatio TP BID #1 tube Transmission Status: Pending to [id number] Minocycline HCl [Minocycline HCl 100mg Tab*] 100 mg PO BID #20 tab Transmission Status: [id number] Referrals: PCP,No [Primary Care Provider] - - Critical Care Critical Care Time: No Attestation: On 09/02/20, the high probability of a clinically significant, sudden or life threatening deterioration of the following system(s) required my full and direct attention, intervention and personal management. The time I documented below is in addition to time spent performing reported procedures but includes the following listed in this critical care notation. Medical Decision Making - Medical Records Medical records reviewed: Yes: I reviewed the patient's medical records. - Bubba Inquiry Pt receiving controlled substance: No Vital Signs: 09/02/20 03:13 Temperature 97.5 F L Temperature Source Oral Pulse Rate [Left] 103 H Respiratory Rate 16 Blood Pressure [Left Arm] 150/91 H Blood Pressure Mean [Left Arm] 110 02 Sat by Pulse Oximetry 100 Oxygen Delivery Method Room Air Skin/Abscess/FB HPI - General Chief complaint: Skin/Abscess/Foreign Body Stated complaint: boil under r arm Time Seen by Provider: 09/02/20 03:35 Mode of Arrival: Ambulatory Source of Information: Patient, Significant Other, Medical Record Limitations: No Limitations Description of Symptoms (Recalled from ER Triage Doc. by RN): pt reports boil under rt arm, redness, pain no drainage noted x week - History of Present Illness HPI narrative: over the last week has rt axilla drainage and tenderness complaint: abscess/boil Onset (ago): day(s) Tetanus up to date: unsure Location: RUE Severity: moderate Associated symptoms: denies other symptoms Treatments prior to arrival: none - Related Data Previous Rx's Medication Instructions Recorded Minocycline HCl [Minocycline HCl 100 mg PO BID #20 tab 09/02/20 100mg Tab*] Mupirocin [Bactroban 2% Ointment 1 applicatio TP BID #1 tube 09/02/20 22gm tube] Sulfamethoxazole/Trimethoprim 1 each PO BID #14 tab 09/02/20 [Bactrim DS tablet] Allergies Allergy/AdvReac Type Severity Reaction Status Date / Time No Known Allergies Allergy Verified 09/02/20 03:29 [facility] History - Hepatitis A Screen Drug use history?: Yes High risk sexual behaviors?: No History of sexually transmitted infection?: No Currently employed?: No Childcare worker?: No Do you have indoor plumbing?: Yes Do you have electricity?: Yes Attestation statement:: This patient has been screened for Hepatitis A risk factors. I have reviewed the patient's past medical history: Yes Medical History: Reports:: Anxiety, Asthma, Hepatitis, MRSA Denies:: Cancer, Diabetes Mellitus Type 1, Diabetes Mellitus Type 2 Comment: HEP C + Other Surgeries: Yes: No Previous Surgery, Tubal LigationComment Only: Other (leap surgery and reconstructive surgery on face) Amputation: No Fractures: No - Social History Smoking Status: Current every day smoker Tobacco Type: cigarettes # Packs/Day (cigarettes): 1 Alcohol Intake: never Substance Use Type: methamphetamine Last Used Substance: unknown Occupational Status: unemployed Housing: house Household Members: family - Psychiatric History Pschychiatric History:: Reports:: Anxiety Family Hx:: Cancer, Hypertension, Heart Attack, Stroke ROS Obtained: Yes All systems reviewed & no additional complaints - Constitutional Constitutional: Denies fever
[2020-09-02 04:13] VITALS: BP 149/89; PULSE 99; RESP 16; TEMP 36.4; O2SAT 99
== END 2020-09-02 04:18 | disposition home or self-care (01) ==
PROVIDERS: Emergency Provider Emergency Medicine
DX: L03.111 Cellulitis of right axilla (principal); F41.9 Anxiety disorder, unspecified; J45.909 Unspecified asthma, uncomplicated; F17.210 Nicotine dependence, cigarettes, uncomplicated; Z79.899 Other long term (current) drug therapy
CPT/HCPCS: 99281

== ENCOUNTER 2021-01-14 10:07 | Emergency (ER) | payer MEDICAID, SELFPAY ==
[2021-01-14 10:14] VITALS: BP 138/91; PULSE 82; RESP 18; TEMP 36.8; O2SAT 98; BMI 25.8
--- NOTE | 2021-01-14 10:25 | HMH.EDUTC ---
[facility] [place] Clinical Impression: Otitis media Qualifiers: Otitis media type: unspecified Laterality: left Qualified Code(s): H66.92 - Otitis media, unspecified, left ear Sinusitis Qualifiers: Sinusitis location: unspecified location Chronicity: unspecified Qualified Code(s): J32.9 - Chronic sinusitis, unspecified Disposition: Home, Self-Care Condition on Discharge: Good Instructions: Sinusitis, DI for Sinusitis, Middle Ear Infection, Amoxicillin and Clavulanic Acid, Methylprednisolone Additional Instructions: *Monitor Temp, Over the counter Motrin or Tylenol as directed/as needed Tylenol every 4 hours and Motrin every 6 hours (as long as your family doctor has told you that you can take it) for fever or pain. and straight to ER if unable to lower temp less than 101.0 after medication given *Warm salt water gargles may help to soothe the throat *Throat Lozenges *Warm fluids like tea with honey may help to soothe the throat *Sleep elevated *? Start antibiotic today. Be sure to complete entire prescription even if feeling better ? Monitor temp. Tylenol every 4 hours as needed and / or ibuprofen every 6 hours as needed ( As long as your primary care physician has told you that it ok to take both. For fever/aches/pains ER if no less than 101 despite Tylenol or Motrin ? Humidifier/vaporizer or hot steamy shower ? Inhaler every 4-6 hours as needed like we discussed. If unsure how to use it, ask pharmacist to demonstrate how. Should help open airways and improve cough, wheezing, and shortness of breath ? Mucinex during the day for your cough and cough suppressant only at night. Be sure to drink lots of water. Insurance may not cover a prescriptions for mucinex. Might be cheaper to get 400mg tablets and take 2 tablet in the morning, mid-day and evening with lots of water. *Tessalon Perles will not cause drowsiness but use at bedtime to help stop cough so that you may get some rest. *Start steroid today. Helps with inflammation therefore, cough and wheezing. Follow directions on the package. Reviewed side effects. Patient reports taking them before. Follow up IMMEDIATELY for new or worsening of symptoms OR no noticeable improvement over the next 48-72 hours. 911 immediately for any life threatening symptoms such as chest pain or difficulty breathing Follow up IMMEDIATELY for new or worsening symptoms or no Noticeable improvement over the next 48-72 hours. 911 for difficulty breathing or swallowing Prescriptions: Albuterol Sulfate [Proventil-HFA 90mcg/puff Inh] 1 - 2 puffs IH Q4HP PRN #1 inh PRN Reason: Shortness Of Breath Transmission Status: [id number] Amoxicillin/Potassium Clav [Augmentin 875-125 Tablet] 1 tab PO Q12H 10 Days #20 tab Transmission Status: [id number] predniSONE [Prednisone 5mg Tab Dose-Pack] 5 mg PO UD DOSE PK 6 Days #21 pack Transmission Status: [id number] Benzonatate [Tessalon Perle 100mg Cap*] 100 mg PO TID PRN #15 cap PRN Reason: Cough Transmission Status: [id number] Referrals: Ezra Mancilla [Primary Care Provider] - As needed Time of Disposition: 10:34 Medical Decision Making - Bubba Inquiry Pt receiving controlled substance: No Bubba was queried for this patient: No Vital Signs: 01/14/21 10:14 Temperature 98.2 F Temperature Source Oral Pulse Rate [Right] 82 Respiratory Rate 18 Blood Pressure [Right Arm] 138/91 H Blood Pressure Mean [Right Arm] 106 02 Sat by Pulse Oximetry 98 Orders (Tests/Meds): ORDERS Category Date Time Status Covid-19 Nasal PCR ([facility]) Routine Lab 01/14/21 10:23 [place] [facility] [place] - General Stated complaint: cough, congestion Time Seen by Provider: 01/14/21 10:25 Mode of Arrival: Ambulatory Source of Information: Patient Limitations: No Limitations Description of Symptoms (Recalled from Triage Doc. by RN): L ear pressure, fatigue, soa, pressure in lungs with breathing,
[2021-01-14 11:01] VITALS: BP 137/87; PULSE 75; RESP 16; TEMP 37
== END 2021-01-14 11:05 | disposition home or self-care (01) ==
PROVIDERS: Emergency Provider Nurse Practitioner; PCP Pediatrics
DX: H66.92 Otitis media, unspecified, left ear (principal); J32.9 Chronic sinusitis, unspecified
CPT/HCPCS: 99202; G0463; U0003